=== PATIENT | female | born 1980 | race Caucasian/White ===

== ENCOUNTER 2019-04-02 10:26 | Outpatient (CLI) | payer OTHER | END 2019-04-02 17:35 | disposition home or self-care (01) | LOC: OBS/DEL 10:26 | DX: O26.843 Uterine size-date discrepancy, third trimester (principal); O24.313 Unspecified pre-existing diabetes mellitus in pregnancy, third trimester; O34.211 Maternal care for low transverse scar from previous cesarean delivery; O26.893 Other specified pregnancy related conditions, third trimester; R10.2 Pelvic and perineal pain ==